=== PATIENT | male | born 1985 | race Caucasian/White ===

== ENCOUNTER → 2017-08-13 | Outpatient (CLI) | payer OTHER ==
--- NOTE | 2017-08-13 10:17 | CT ---
EXAMINATION TYPE: CT ankle LT wo con DATE OF EXAM: 08/13/2017 COMPARISON: NONE HISTORY: Left sided medial ankle pain post trauma CT DLP: 254.6 mGycm Automated exposure control for dose reduction was used. CONTRAST: None FINDINGS: There is generalized soft tissue swelling of the left ankle most focal over the medial malleolus and medial hindfoot. This is secondary to a nondisplaced intra-articular known comminuted medial malleolu s fracture extending from the posterior medial distal tibia along the physis on sagittal series 7 coco ge 43 to the anterior cortical surface. Intra-articular extent is delineated on the coronal series 6 image 39. Additionally there is a subtle nondisplaced intra-articular posterior malleolus fracture juarez ch as on sagittal series 7 image 34 and 33. No lateral malleolus fracture is seen. Sclerotic foci wit hin the distal tibia and talus are presumed to relate to benign bone islands. No additional fracture is seen within the visualized left lower extremity. Evaluation of the tendons and ligaments is suboptimal on CT and further limited secondary to the subcutaneous edema however the y are grossly intact. IMPRESSION: Noncomminuted, nondisplaced intra-articular fractures of both the medial and posterior malleolus with overlying soft tissue swelling. Findings were relayed to surgical nurse Molly at the ordering phys ician's office strictly by Dr. Whitten at 1013 on 08/13/2017
== END | disposition home or self-care (01) ==
LOC: RADCTMAIN 09:35
PROVIDERS: ATTEND Orthopaedic Surgery
DX: S82.55XA Nondisplaced fracture of medial malleolus of left tibia, initial encounter for closed fracture (principal); S82.892A Other fracture of left lower leg, initial encounter for closed fracture